=== PATIENT | female | born 1950 | race Caucasian/White ===

== ENCOUNTER 2017-09-27 11:11 | Emergency (ER) | payer MEDICARE, MEDICAID ==
[~2017-09-27] VITALS: Ht 172.7 cm; Wt 95.3 kg
[~2017-09-27 11:11] MED LIST: ANASTROZOLE1 MG PO; GABAPENTIN300 MG ORAL; LEVOTHYROXINE125 MCG ORAL; LITHIUM CARBON300 MG ORAL; PAROXETINE HCL20 MG PO; TRAZODONE HCL150 MG ORAL; WELLBUTRIN XL150 MG ORAL
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
[2017-09-27 14:13] VITALS: BP 141/78
--- NOTE | 2017-09-27 16:39 | Diagnostic Imaging Report ---
Indication: Pain Technique: 3 views of the right third toe Comparison: none Findings: There is severe degenerative narrowing of the first metatarsophalangeal joint. There are surrounding erosive changes. No acute fractures. No dislocations. 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
--- NOTE | 2017-09-27 16:42 | Diagnostic Imaging Report ---
Indication: Knee pain Technique: 2 views of the right knee Comparison: None Findings: No suprapatellar effusion. No acute fractures. No dislocations. Joint spaces are preserved Impression: No acute process
== END 2017-09-27 14:45 | disposition home or self-care (01) ==
LOC: EMR 14:34
DX: S92.501A Displaced unspecified fracture of right lesser toe(s), initial encounter for closed fracture (principal); S80.01XA Contusion of right knee, initial encounter; W01.0XXA Fall on same level from slipping, tripping and stumbling without subsequent striking against object, initial encounter; Y93.9 Activity, unspecified; Y92.9 Unspecified place or not applicable; Z88.0 Allergy status to penicillin; Z85.3 Personal history of malignant neoplasm of breast; F32.9 Major depressive disorder, single episode, unspecified
CPT/HCPCS: 99283

== ENCOUNTER 2017-11-05 14:24 | Emergency (ER) | payer MEDICARE, MEDICAID ==
[~2017-11-05] VITALS: Ht 172.7 cm; Wt 95.3 kg
[~2017-11-05 14:24] MED LIST changes: +RESTORIL15 MG ORAL
[2017-11-05 14:33] VITALS: BP 139/66
[2017-11-05 15:26] VITALS: BP 139/66
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
[2017-11-30] MEDS ORDERED: ZYPREXA5 MG ORAL (15:18)
== END 2017-11-05 15:20 | disposition home or self-care (01) ==
LOC: EMR 15:17
DX: F91.9 Conduct disorder, unspecified (principal); Z88.0 Allergy status to penicillin
CPT/HCPCS: 99283

== ENCOUNTER 2017-11-08 09:10 | Emergency (ER) | payer MEDICARE, MEDICAID ==
[~2017-11-08] VITALS: Ht 172.7 cm; Wt 96.6 kg
[2017-11-08 09:28] VITALS: BP 120/73
[2017-11-08] MEDS ORDERED: BENADRYL ALLERG25 M1 PO (09:29)
--- NOTE | 2017-11-08 09:34 | Emergency Room Report ---
History of Present Illness General Chief Complaint: Skin Rash/Abscess Source: Patient Present Illness HPI 67-year-old female with history of "emotional problems" presents tearful due to the fact that she has itchy red bumps on her body, mainly in her arms and trunk , as well as one on the lateral edge of her right foot, that been going on for about a week, she reports that her primary doctor prescribed her oral ivermectin and permethrin cream, both of which she brings him to the ED to show me, and she has tried these without relief of her symptoms. She just woke up with a new red itchy lesion on her right lateral foot. She denies any medications other than these 2, and she reports he isn't given to her by her doctor to stop itchy bumps. Allergies: Coded Allergies: PENICILLINS (Verified Allergy, Mild, Rash, 03/23/17) Patient History Past Medical History: see triage record Last Menstrual Period: NA Reviewed Nursing Documentation: PMH: Agreed; PSxH: Agreed Nursing Documentation-PMH Hx Cancer: Yes Review of Systems All Other Systems: negative except mentioned in HPI Physical Exam Vital Signs Date Time Temp Pulse Resp B/P (MAP) Pulse Ox O2 Delivery O2 Flow Rate FiO2 11/08/17 09:15 98.9 75 16 120/73 95 Room Air 99.0 Sp02 EP Interpretation: reviewed, normal General Appearance: no apparent distress, alert, non-toxic Head: normocephalic Eyes: bilateral eye normal inspection, bilateral eye PERRL, bilateral eye EOMI ENT: normal ENT inspection, hearing grossly normal, normal pharynx, no angioedema, normal voice, moist mucus membranes Neck: normal inspection, full range of motion, supple, supple/symm/no masses Respiratory: chest non-tender, lungs clear, normal breath sounds, chest symmetrical, palpation of chest normal Cardiovascular #1: normal peripheral pulses, regular rate, rhythm Cardiovascular #2: 2+ radial (R), 2+ radial (L) Gastrointestinal: normal inspection, non tender, soft, no mass, no guarding, no rebound Rectal: deferred Genitourinary: normal inspection, no CVA tenderness Musculoskeletal: back normal, gait/station normal, normal range of motion, non- tender, no calf tenderness Neurologic: alert, responsive, manager practice III-XII nml as tested, motor strength/tone normal, sensory intact, speech normal Psychiatric: judgement/insight normal, memory normal, anxious Skin: normal color, warm/dry, normal turgor, rash - Review isolated half centimeter red pruritic slightly raised lesions, no central clearing, appears to be consistent with isolated bug bites and localized allergic reaction. Lymphatic: no adenopathy Medical Decision Making Diagnostic Impression: Primary Impression: Bug bite ER Course Patient with no intertriginous burrowing murphy, no oral lesions, normal cardiorespiratory examination, sparing the palms and soles, few isolated localized reactions consistent with very unremarkable allergic reaction to bug bites, will discharge home with Benadryl and recommend she finish her permethrin cream and oral ivermectin, however do not suspect scabies or systemic allergic reaction or hives. Last Vital Signs Date Time Temp Pulse Resp B/P (MAP) Pulse Ox O2 Delivery O2 Flow Rate FiO2 11/08/17 09:28 99.0 75 18 120/73 97 Room Air 99.0 Disposition: HOME, SELF-CARE Condition: Stable Scripts Diphenhydramine Hcl (BENADRYL ALLERGY) 25 Mg Tablet 25 MG PO TID for 5 Days, #15 TAB Prov: AYDEN MCCRAY M.D 11/08/17 Patient Instructions: Insect Bite, [id number] AYDEN MCCRAY M.D Nov 08, 2017 09:34
[2017-11-08 09:38] VITALS: BP 120/73
[2017-11-30] MEDS ORDERED: ZYPREXA5 MG ORAL (15:18)
== END 2017-11-08 09:39 | disposition home or self-care (01) ==
LOC: EMR 09:26
DX: S40.862A Insect bite (nonvenomous) of left upper arm, initial encounter (principal); S40.861A Insect bite (nonvenomous) of right upper arm, initial encounter; S90.861A Insect bite (nonvenomous), right foot, initial encounter; W57.XXXA Bitten or stung by nonvenomous insect and other nonvenomous arthropods, initial encounter; Y92.9 Unspecified place or not applicable; R21 Rash and other nonspecific skin eruption; Z88.0 Allergy status to penicillin
CPT/HCPCS: 99283

== ENCOUNTER 2017-11-17 09:38 | Emergency (ER) | payer MEDICARE, MEDICAID ==
[~2017-11-17] VITALS: Ht 172.7 cm; Wt 96.6 kg
[~2017-11-17 09:38] MED LIST changes: +BENADRYL ALLERG25 M1 PO
[2017-11-17 09:50] VITALS: BP 123/76
[2017-11-17] MEDS ORDERED: Bacitracin Oint UD TOPIC ONE (10:15)
--- NOTE | 2017-11-17 10:25 | Emergency Room Report ---
History of Present Illness General Chief Complaint: Multiple Trauma/Fall Source: Patient Present Illness HPI This patient states that there was a floor mat that was displaced. She states she tripped over and fell onto her left knee. She states she also hit her face on a chair that wasn't supposed to be there. She denies chest pain or short of breath. She denies abdominal pain. She denies loss of consciousness. She denies neck pain. She has no other complaints. Allergies: Coded Allergies: PENICILLINS (Verified Allergy, Mild, Rash, 03/23/17) Patient History Past Medical History: see triage record Social History: Denies: smoking, alcohol use, drug use Last Menstrual Period: NA Reviewed Nursing Documentation: PMH: Agreed; PSxH: Agreed Nursing Documentation-PMH Hx Cancer: Yes Review of Systems All Other Systems: negative except mentioned in HPI Physical Exam Vital Signs Date Time Temp Pulse Resp B/P (MAP) Pulse Ox O2 Delivery O2 Flow Rate FiO2 11/17/17 09:45 97.7 74 20 123/76 98 Room Air 97.7 Sp02 EP Interpretation: reviewed, normal General Appearance: no apparent distress, alert, GCS 15, non-toxic Head: normocephalic, atraumatic Eyes: bilateral eye normal inspection, bilateral eye PERRL ENT: hearing grossly normal, normal pharynx, no angioedema, normal voice Neck: full range of motion, supple/symm/no masses Respiratory: chest non-tender, lungs clear, normal breath sounds, no respiratory distress, no retraction, no accessory muscle use, speaking full sentences Cardiovascular #1: regular rate, rhythm, no edema Gastrointestinal: normal bowel sounds, non tender, soft, non-distended, no guarding, no rebound Genitourinary: normal inspection, no CVA tenderness Musculoskeletal: back normal, gait/station normal, normal range of motion, non- tender Neurologic: alert, oriented x3, responsive, motor strength/tone normal, sensory intact, speech normal Psychiatric: judgement/insight normal, memory normal, mood/affect normal, no suicidal/homicidal ideation Skin: warm/dry, well hydrated, abrasions - Anterior knee and cervantes with superficial abrasions. No bony tenderness. Lymphatic: no adenopathy Medical Decision Making Diagnostic Impression: Primary Impression: Fall Additional Impressions: Abrasion of knee Contusion of knee, left ER Course This patient has abrasions of her left knee. Otherwise, her overall exam is unremarkable. Based on physical exam, I do not have any suspicion of fracture and therefore did not obtain any imaging. Overall, the patient evaluation is benign. The patient's wound was cleaned, irrigated, bacitracin was applied and dressed. The patient is given wound care instructions. At this time, I did not identify an emergency medical condition. The patient's given close return precautions and follow-up instructions. Last Vital Signs Date Time Temp Pulse Resp B/P (MAP) Pulse Ox O2 Delivery O2 Flow Rate FiO2 11/17/17 09:50 97.7 20 123/76 98 Room Air 97.7 11/17/17 09:45 74 Status: improved Disposition: HOME, SELF-CARE Condition: Improved Cassidy Cruz DO Nov 17, 2017 10:25
--- NOTE | 2017-11-23 15:24 | IOP Daily Group Progress Note ---
IOP Daily Group Progress Note Treatment Plan/Target Problem: Date: Nov 23, 2017 Group Reflections - : group 3 (11:30am-12:15pm) Therapy Goal(s) of Group: positive thoughts to improve mood, reminiscing to improve mood, socialization skills, stress reduction Observations: active listening skills, focused, participated spontaneously, participating actively, self disclosing, responded to limits Staff Intervention: reframed, taught assertiveness skills, validated feelings, validated progress Staff Intervention: Today the topic for this Symptom Management group was: . Therapist used an excerpt and handout from Skills Training Manual for Treating B.P.D with Cognitive Therapy . Therapist asked each group member to identify what makes them angry and to share with the group what were the strategies used to cope with their anger .Therapist educated on the importance of learning how to recognize anger triggers and identify healthy ways to cope with anger. Therapist followed this up with a group discussion, encouraging patients to use this information in moving forward. . Patients were participative and engaged during group activity. Response/Progress Noted: Pt. was very cooperative in completing the verbal directive, she promoted further group discussion . When asked by this therapist to share the exercise results, pt. reported, " It made me angry when people lie to me, I get inflammed" Pt received and processed feedback from the group in connection with her intense feelings and her openness to discuss them. Pt. was encouraged to apply these learning as often as needed when experiencing anger. It is anticipated that pt. benefitted from learning how to recognized and cope with anger and from listening to his peers comment on what helps them in their emotional regulation process. SISSY RUSS Nov 23, 2017 15:24
== END 2017-11-17 10:50 | disposition home or self-care (01) ==
LOC: EMR 10:43
DX: S80.212A Abrasion, left knee, initial encounter (principal); W01.0XXA Fall on same level from slipping, tripping and stumbling without subsequent striking against object, initial encounter; Y92.9 Unspecified place or not applicable; Z88.0 Allergy status to penicillin
CPT/HCPCS: 99283

== ENCOUNTER 2017-12-04 20:07 | Emergency (ER) | payer MEDICARE, MEDICAID ==
[~2017-12-04] VITALS: Ht 172.7 cm; Wt 96.6 kg
[~2017-12-04 20:07] MED LIST changes: +ZYPREXA5 MG ORAL
[2017-12-04 20:40] VITALS: BP 110/59
[2017-12-04] MEDS ORDERED: Albuterol/Ipratropium 3ml neb HHN ONE (20:45)
[2017-12-04] MEDS ORDERED: ALBUTEROL SULF8.5 GM INH (21:37)
[2017-12-04 21:40] VITALS: BP 114/59
--- NOTE | 2017-12-04 21:57 | Emergency Room Report ---
History of Present Illness General Chief Complaint: General Complaint Present Illness HPI Patient is a 67-year-old female who presented after increased difficulty breathing. Patient gradual onset of symptoms. Patient reported having accidentally inhaled some cleaning solution and approximately 2 days ago. She reports having prior history of breast cancer as well as mastectomy to the right side. Allergies: Coded Allergies: PENICILLINS (Verified Allergy, Mild, Rash, 03/23/17) Patient History Past Medical History: see triage record Reviewed Nursing Documentation: PMH: Agreed; PSxH: Agreed Nursing Documentation-PMH Hx Cancer: Yes Review of Systems All Other Systems: negative except mentioned in HPI Physical Exam Vital Signs Date Time Temp Pulse Resp B/P (MAP) Pulse Ox O2 Delivery O2 Flow Rate FiO2 12/04/17 20:23 98.2 71 18 105/52 93 Room Air 98.2 12/04/17 21:00 21 General Appearance: well appearing, no apparent distress, alert, GCS 15, non- toxic Head: normocephalic, atraumatic ENT: hearing grossly normal, normal voice Neck: full range of motion, supple Respiratory: no respiratory distress, speaking full sentences, wheezing - faint wheezing Cardiovascular #1: normal inspection Gastrointestinal: normal inspection, non tender, soft, no mass Musculoskeletal: no calf tenderness Neurologic: normal gait Psychiatric: mood/affect normal Skin: no rash Medical Decision Making Diagnostic Impression: Primary Impression: Pneumonitis ER Course Patient presented for shortness of breath. Differential included but was not limited to anemia, pneumonia, pneumothorax, myocardial infarction, pericardial effusion, congestive heart failure, acidosis. Because of complexity of patient' s case imaging studies were ordered.Chest x-ray one view interpreted by me showed normal cardiac size without definite infiltrate. Patient was given breathing treatment with some improvement in her symptoms. Given prescription for a inhaler. Patient is advised to follow-up with Dr. Cotto. The patient was to return if she began having any worsening shortness of breath high fever or other concerns. Last Vital Signs Date Time Temp Pulse Resp B/P (MAP) Pulse Ox O2 Delivery O2 Flow Rate FiO2 12/04/17 21:40 98.2 62 20 114/59 100 Room Air 98.2 12/04/17 21:06 21 Status: improved Disposition: HOME, SELF-CARE Condition: Stable Scripts Albuterol Sulfate* (ALBUTEROL SULFATE MDI*) 8.5 Gm Hfa.aer.ad 2 PUFF INH Q4H, #1 INH 0 Refills Prov: King Link MD 12/04/17 Patient Instructions: Pneumonitis King Link MD Dec 04, 2017 21:57
--- NOTE | 2017-12-05 09:37 | Diagnostic Imaging Report ---
Indication: Reason For Exam: SOB Technique: One view of the chest Comparison: none Findings: There is a right breast implants. There is atelectasis at the left lateral lung base. Lungs and pleural spaces are otherwise clear. The heart size is normal Impression: Left basilar atelectasis. No acute process otherwise
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
== END 2017-12-04 22:18 | disposition home or self-care (01) ==
LOC: EMR 20:43
DX: J18.9 Pneumonia, unspecified organism (principal); E03.9 Hypothyroidism, unspecified; Z87.891 Personal history of nicotine dependence; Z85.3 Personal history of malignant neoplasm of breast; Z90.11 Acquired absence of right breast and nipple; Z88.0 Allergy status to penicillin
CPT/HCPCS: 71045; 94640; 94664; 99284; J7620

== ENCOUNTER 2017-12-07 18:14 | Emergency (ER) | payer MEDICARE, MEDICAID ==
[~2017-12-07] VITALS: Ht 172.7 cm; Wt 90.7 kg
[~2017-12-07 18:14] MED LIST changes: +ALBUTEROL SULF8.5 GM INH
[2017-12-07 18:51] VITALS: BP 139/76
--- NOTE | 2017-12-07 18:54 | Emergency Room Report ---
History of Present Illness General Chief Complaint: Earache Source: Patient (Lisandro Chanel) Present Illness HPI 67-year-old female patient presents ER complaining of bilateral earache for the past few days. Reports was seen in ER several days ago getting a breathing treatment, states dthe day afterwards began to experience earache pain. States was unable to be seen by PCP and was sent to ER. Reports decreased hearing during this time. Patient also requesting breathing treatment be performed. States has been coughing since previous visit. Patient reports cough with green sputum. Denies hemoptysis. Reports sore throat during this time as well. Reports history of tinnitus. Denies fever, chest pain, shortness of breath. Denies head trauma or vision changes. (Lisandro Chanel) Allergies: Coded Allergies: PENICILLINS (Verified Allergy, Mild, Rash, 03/23/17) Patient History Past Medical History: see triage record Reviewed Nursing Documentation: PMH: Agreed; PSxH: Agreed (Lisandro Chanel) Nursing Documentation-PMH Past Medical History: No History, Except For Hx Cardiac Problems: No - hypothyroidism Hx Hypertension: No - Fall Hx Pacemaker: No Hx Asthma: No Hx COPD: No Hx Diabetes: No Hx Cancer: Yes - right breast cancer; right mastectomy Hx Gastrointestinal Problems: No Hx Dialysis: No Hx Neurological Problems: No Hx Cerebrovascular Accident: No Hx Seizures: No (Lisandro Chanel) Review of Systems All Other Systems: negative except mentioned in HPI (Lisandro Chanel) Physical Exam Vital Signs Date Time Temp Pulse Resp B/P (MAP) Pulse Ox O2 Delivery O2 Flow Rate FiO2 12/07/17 18:29 99.2 79 14 139/76 94 Room Air 99.1 Sp02 EP Interpretation: reviewed, normal General Appearance: well appearing, no apparent distress, alert, GCS 15, non- toxic Head: normocephalic, atraumatic Eyes: bilateral eye normal inspection, bilateral eye PERRL ENT: hearing grossly normal, normal pharynx, no angioedema, normal voice, TMs + canals normal - excessive cerumen bilaterally, uvula midline, moist mucus membranes Neck: full range of motion Respiratory: lungs clear, normal breath sounds, no rhonchi, no respiratory distress, no accessory muscle use, no wheezing, speaking full sentences Cardiovascular #1: regular rate, rhythm, no edema Musculoskeletal: back normal, digits/nails normal, gait/station normal, normal range of motion, non-tender, no calf tenderness, Hola's Sign negative Neurologic: alert, oriented x3, responsive, motor strength/tone normal, sensory intact Psychiatric: mood/affect normal Skin: no rash Lymphatic: no adenopathy (Lisandro Chanel) Medical Decision Making [place] Attestation Dr. Liu is my supervising Physician whom patient management has been discussed with. (Lisandro Chanel) Medicare Attestation The history of Nata Hudson has been reviewed and management options for her have been examined and discussed by Mckay Liu. I have personally examined and interviewed the patient. (Mckay Liu MD) Diagnostic Impression: Primary Impression: Excessive cerumen in both ear canals ER Course Pt presents to ED c/o ear pain. DDX considered but are not limited to rhinitis, sinusitis, otitis media, otitis externa, cerumen impaction. Low suspicion for PE per Well's criteria, Homans sign negative. VITAL SIGNS are WNL, patient is afebrile. ED INTERVENTIONS: Lungs clear to auscultation, no wheezes, rhonci or rales. Patient afebrile, does not require CXR, low suspicion for pneumonia.. Will provide breathing treatment. Patient reports feeling better following breathing treatment, lungs clear to auscultation. PE shows excessive cerumen in ears bilaterally. No mastoid swelling or erythema , no rash or vesicles on face. Able to visualize TMs bilaterally, no erythema or edema, no effusion. Will provide treatment of ear fullness and cerumen, does not require ear lavage at this time. Patient instructed not to use Q-tips. Follow-up with primary care provider for further treatment and referral. Discuss referral to ENT. Patient resting comfortably in no acute distress, nontoxic appearing, texting on phone and reading a book. Patient OK for discharge to home. DISCHARGE: Rx provided for Debrox Rx provided for Claritin At this time pt is stable for d/c to home. patient resting comfortably, no acute distress, nontoxic appearing, talking without difficulty, smiling. Patient to take medications as instructed Will provide with patient care instructions and any necessary prescriptions. Care plan and follow-up instructions provided. Patient instructed to follow-up with primary care in 3 - 5 days. Patient questions asked and answered. patient reports understanding and agreement treatment plan. ER precautions given. Patient instructed to return to ER immediately for any new or worsening of symptoms including but not limited to increasing SOB, persistent fever. - Please note that this Emergency Department Report was dictated using Rapportsquare shear operator technology software, occasionally this can lead to erroneous entry secondary to interpretation by the dictation equipment. (Lisandro Chanel) Last Vital Signs Date Time Temp Pulse Resp B/P (MAP) Pulse Ox O2 Delivery O2 Flow Rate FiO2 12/07/17 18:29 99.2 79 14 139/76 94 Room Air 99.1 (Lisandro Chanel) Disposition: HOME, SELF-CARE Condition: Stable Scripts Loratadine (CLARITIN) 10 Mg Tablet 10 MG ORAL DAILY, #30 TAB Prov: Lisandro Chanel 12/07/17 Carbamide Peroxide (DEBROX) 15 Ml Drops 10 DROP BOTH EARS TWICE A DAY for 4 Days, ML 0 Refills Prov: Lisandro Chanel 12/07/17 Patient Instructions: Cerumen Impaction Additional Instructions: Followup with primary care provider in 3 -5 days. Request referral to ENT. Take medications as directed. Continue taking medications as previously instructed at previous visit Patient questions asked and answered. ER precautions given, patient instructed to return to ER immediately for any new or worsening of symptoms. Lisandro Chanel Dec 07, 2017 18:54 Mckay Liu MD Dec 11, 2017 13:53
[2017-12-07] MEDS ORDERED: Albuterol/Ipratropium 3ml neb HHN ONE (19:00)
[2017-12-07] MEDS ORDERED: DEBROX15 M1 BOTH EARS (20:17)
[2017-12-07] MEDS ORDERED: CLARITIN10 MG ORAL (20:17)
[2017-12-07 20:31] VITALS: BP 135/74
== END 2017-12-07 20:31 | disposition home or self-care (01) ==
LOC: EMR 18:30
DX: H61.23 Impacted cerumen, bilateral (principal); E03.9 Hypothyroidism, unspecified; Z85.3 Personal history of malignant neoplasm of breast; Z90.11 Acquired absence of right breast and nipple; Z88.0 Allergy status to penicillin
CPT/HCPCS: 94640; 99284; J7620

== ENCOUNTER 2017-12-29 20:24 | Emergency (ER) | payer MEDICARE, MEDICAID ==
[~2017-12-29] VITALS: Ht 172.7 cm; Wt 99.8 kg
[~2017-12-29 20:24] MED LIST changes: +CLARITIN10 MG ORAL; +DEBROX15 M1 BOTH EARS
[2017-12-29] MEDS ORDERED: IBUPROFEN600 MG ORAL (20:59)
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
[2017-12-29 21:05] VITALS: BP 108/67
== END 2017-12-29 21:15 | disposition home or self-care (01) ==
LOC: EMR 21:11
DX: M76.62 Achilles tendinitis, left leg (principal); E03.9 Hypothyroidism, unspecified; F32.9 Major depressive disorder, single episode, unspecified; Z85.3 Personal history of malignant neoplasm of breast; Z88.0 Allergy status to penicillin
CPT/HCPCS: 29515; 99282

== ENCOUNTER 2018-02-15 12:49 | Emergency (ER) | payer MEDICARE, MEDICAID ==
[~2018-02-15] VITALS: Ht 172.7 cm; Wt 104.3 kg
[~2018-02-15 12:49] MED LIST changes: +IBUPROFEN600 MG ORAL
--- NOTE | 2018-02-15 13:34 | Emergency Room Report ---
History of Present Illness General Chief Complaint: Lower Extremity Injury Source: Patient Present Illness HPI 67-year-old female patient presents ER complaining of bilateral knee pain. Patient states that she tripped and fell twice about 2 weeks ago onto her knees , states she heard a "pop". Patient denies dizziness or syncopal episode, denies hitting her head or loss of consciousness. States that falls occurred after this he moved to her new place with her finishing floors. Patient states that they are "recent cementing" and redoing the floors at her new place and she has been tripping there. Reports has not fallen in 2 weeks. Reports able ambulate. Reports small abrasions on her knees, denies active bleeding. reports was taking Tylenol for pain but stopped several days ago. Denies fever , chest pain or shortness of breath. reports able ambulate without difficulty. Denies bowel or bladder incontinence Allergies: Coded Allergies: PENICILLINS (Verified Allergy, Mild, Rash, 03/23/17) Patient History Past Medical History: see triage record Now: No Reviewed Nursing Documentation: PMH: Agreed; PSxH: Agreed Nursing Documentation-PMH Past Medical History: No History, Except For Hx Cardiac Problems: No - hypothyroidism Hx Hypertension: No - Fall Hx Pacemaker: No Hx Asthma: No Hx COPD: No Hx Diabetes: No Hx Cancer: Yes - right breast cancer; right mastectomy Hx Gastrointestinal Problems: No Hx Dialysis: No Hx Neurological Problems: No Hx Cerebrovascular Accident: No Hx Seizures: No Review of Systems All Other Systems: negative except mentioned in HPI Physical Exam Vital Signs Date Time Temp Pulse Resp B/P (MAP) Pulse Ox O2 Delivery O2 Flow Rate FiO2 02/15/18 13:03 98.2 60 21 131/73 95 Room Air Sp02 EP Interpretation: reviewed, normal General Appearance: well appearing, no apparent distress, alert, GCS 15, non- toxic Head: normocephalic, atraumatic Eyes: bilateral eye normal inspection, bilateral eye PERRL ENT: hearing grossly normal, normal pharynx, no angioedema, normal voice, uvula midline, moist mucus membranes Neck: full range of motion Respiratory: lungs clear, normal breath sounds, no rhonchi, no respiratory distress, no accessory muscle use, no wheezing, speaking full sentences Cardiovascular #1: regular rate, rhythm, no edema Cardiovascular #2: 2+ dorsalis pedis (R), 2+ dorsalis pedis (L) Musculoskeletal: back normal, digits/nails normal, gait/station normal, normal range of motion, non-tender, other - NVI, no bony deformity, no erythema or edema, no ecchymosis, no laxity with varus or valgus stress, negative anterior and posterior shortness, Adams test shows no achilles rupture Neurologic: alert, oriented x3, responsive, motor strength/tone normal, sensory intact Psychiatric: mood/affect normal Skin: abrasions - multiple less than 1 cm abrasions noted around the left knee , knee, and no surrounding erythema or edema, no active drainage or bleeding, scabbed over Medical Decision Making [place] Attestation Dr. Link is my supervising Physician whom patient management has been discussed with. Diagnostic Impression: Primary Impression: Contusion of knee, right Additional Impression: Contusion of knee, left ER Course Pt. presents to the ED c/o bilateral knee pain. Ddx considered but are not limited to fracture, sprain, strain, contusion, dislocation. No erythema, no warmth to touch, no fever, nontoxic appearing, low suspicion for septic joint. Soft compartments, no pulselessness, no pallor, no paresthesias, low suspicion for compartment syndrome at this time. no head trauma, no loss consciousness, no dizziness or syncope, does not require CT of head or further workup at this time. Vital signs: are WNL, pt. is afebrile Ordered X-ray and pain medication. ER COURSE Provided with pain medication. An X-ray of the left knee shows no acute fracture per the preliminary reading. An X-ray of the right knee shows no acute fracture per the preliminary reading. likely contusions bilaterally causing pain symptoms. Patient declines Bryant wrap and crutches. Patient instructed on RICE method: rest, ice, compression, elevation. Patient instructed on rest, ice and heat. Patient instructed to be WBAT Contact information for orthopedic urgent care provided, follow-up with urgent care if unable to followup with primary care provider and get referral to intranet specialist. Followup with primary care provider. Discuss referral to ortho/pain management/ PT as needed. Discuss further imaging with MRI/CT as needed. follow up with manager division, contact information provided. Keep abrasions clean and dry, apply Neosporin to help reduce appearance of scars. DISCHARGE: -Rx provided for Tylenol for pain symptoms. -Rx provided for bacitracin At this time pt. is stable for d/c to home. Patient is resting comfortably, in no acute distress, nontoxic appearing, talking without difficulty. Will provide printed patient care instructions, and any necessary prescriptions. Patient instructed to follow with primary care provider in 3 - 5 days and to request further follow-up as needed. Care plan and follow up instructions have been discussed with the patient prior to discharge. Take medications as directed. Patient questions asked and answered. Patient reports understanding and agreement to treatment plan. ER precautions given, patient instructed to return to ER immediately for any new or worsening of symptoms. - Please note that this Emergency Department Report was dictated using [employer]oxiesupervisor electrolytic tinning technology software, occasionally this can lead to erroneous entry secondary to interpretation by the dictation equipment. Other X-Ray Diagnostic Results Other X-Ray Diagnostic Results #1: X-Ray ordered: right knee # of Views/Limited Vs Complete: 3 View Indication: Pain PA Xray: Interpretation reviewed, by supervising MD, and agrees with findings. Interpretation: no dislocation, no soft tissue swelling, no fractures Impression: No acute disease PA Scribe Text Ventura Chanel PA-C Other X-Ray Diagnostic Results #2: X-Ray ordered: left knee # of Views/Limited Vs Complete: 3 View Indication: Pain EP Interpretation: Yes PA Xray: Interpretation reviewed, by supervising MD, and agrees with findings. Interpretation: no dislocation, no soft tissue swelling, no fractures Impression: No acute disease PA Scribe Text Ventura Chanel PA-C Last Vital Signs Date Time Temp Pulse Resp B/P (MAP) Pulse Ox O2 Delivery O2 Flow Rate FiO2 02/15/18 13:03 98.2 60 21 131/73 95 Room Air Status: improved Disposition: HOME, SELF-CARE Condition: Stable Scripts Bacitracin/Polymyxin B Sulfate (BACITRACIN-POLYMYXIN OINTMENT) 28.35 Gm Oint...g. 1 APPLIC TP BID, #28 GM Prov: Lisandro Chanel 02/15/18 Acetaminophen* (TYLENOL EXTRA STRENGTH*) 500 Mg Tablet 500 MG ORAL Q8H PRN for Prn Headache/Temp > 101, #30 TAB 0 Refills Prov: Lisandro Chanel 02/15/18 Referrals: NOT CHOSEN IPA/,REFERRING (PCP) Patient Instructions: Abrasion, [id number], Fall Prevention in the Home, Easy -to-Read, Knee Pain, [id number] Additional Instructions: Patient instructed to follow up with primary care provider and discuss further referral to orthopedics/physical therapy/pain management as needed. If unable to followup with PCP, followup with orthopedic urgent care in 5-7 days , call to schedule appointment. Patient instructed on RICE method: rest, ice, compression, elevation. Patient instructed to WBAT. Take medications as directed. Patient questions asked and answered. ER precautions given, patient instructed to return to ER immediately for any new or worsening of symptoms. [facility] [address] [address] [facility], [address] [email or web address] Lisandro Chanel Feb 15, 2018 13:34
[2018-02-15] MEDS ORDERED: TYLENOL EXTRA500 MG ORAL (14:14)
[2018-02-15] MEDS ORDERED: BACITRACIN-P28.35 GM TP (14:15)
[2018-02-15 14:28] VITALS: BP 130/69
--- NOTE | 2018-02-15 14:36 | Diagnostic Imaging Report ---
. Indications: Knee pain Technique: Three views of the right knee Comparison: None Findings: No acute fractures. No dislocations. Joint spaces are preserved. No radiopaque foreign body. Normal mineralization. Impression: No acute process
--- NOTE | 2018-02-15 14:37 | Diagnostic Imaging Report ---
Indication: Left knee pain Technique: 3 views of the left knee Comparison: None Findings: No suprapatellar effusion. No acute fractures. No dislocations. There is a small superior pole patellar traction osteophyte. The joint spaces are preserved. Impression: Negative
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
== END 2018-02-15 14:28 | disposition home or self-care (01) ==
LOC: EMR 13:24
DX: S80.02XA Contusion of left knee, initial encounter (principal); S80.01XA Contusion of right knee, initial encounter; S80.212A Abrasion, left knee, initial encounter; W01.0XXA Fall on same level from slipping, tripping and stumbling without subsequent striking against object, initial encounter; Y92.89 Other specified places as the place of occurrence of the external cause; Z88.0 Allergy status to penicillin; Z85.3 Personal history of malignant neoplasm of breast; Z90.11 Acquired absence of right breast and nipple
CPT/HCPCS: 99284

== ENCOUNTER 2018-04-13 16:07 | Emergency (ER) | payer MEDICAID, MEDICARE ==
[~2018-04-13] VITALS: Ht 172.7 cm; Wt 104.3 kg
[~2018-04-13 16:07] MED LIST changes: +BACITRACIN-P28.35 GM TP; +TYLENOL EXTRA500 MG ORAL
[2018-04-13 16:15] VITALS: BP 109/61
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
[2018-04-13 17:30] VITALS: BP 112/65
== END 2018-04-13 17:30 | disposition home or self-care (01) ==
LOC: EMR 16:59
DX: T14.8XXA Other injury of unspecified body region, initial encounter (principal); X58.XXXA Exposure to other specified factors, initial encounter; Y92.9 Unspecified place or not applicable; E03.9 Hypothyroidism, unspecified; Z85.3 Personal history of malignant neoplasm of breast; Z90.11 Acquired absence of right breast and nipple; Z88.0 Allergy status to penicillin
CPT/HCPCS: 99282

== ENCOUNTER 2018-05-19 10:31 | Emergency (ER) | payer MEDICARE, MEDICAID ==
[~2018-05-19] VITALS: Ht 172.7 cm; Wt 104.3 kg
--- NOTE | 2018-05-19 10:54 | Emergency Room Report ---
History of Present Illness General Chief Complaint: Upper Respiratory Illness Source: Family Member Present Illness HPI Patient presents with reports of cough and respiratory irritation Reports that several months ago after using a bug spray She has flareup of her breathing had required breathing treatments at that time And off-and-on she has had flareups Patient however also reports that she does smoke and uses marijuana as well Denies any chest pain denies any vomiting denies any fevers or chills Patient feels that a breathing treatment will help her sensation Denies any recent travel denies any pleurisy Allergies: Coded Allergies: PENICILLINS (Verified Allergy, Mild, Rash, 03/23/17) Patient History Past Medical History: see triage record Pertinent Family History: none Reviewed Nursing Documentation: PMH: Agreed; PSxH: Agreed Nursing Documentation-PMH Past Medical History: No History, Except For Hx Cardiac Problems: No - hypothyroidism Hx Hypertension: No - Fall Hx Pacemaker: No Hx Asthma: No Hx COPD: No Hx Diabetes: No Hx Cancer: Yes - right breast cancer; right mastectomy Hx Gastrointestinal Problems: No Hx Dialysis: No Hx Neurological Problems: No Hx Cerebrovascular Accident: No Hx Seizures: No Review of Systems All Other Systems: negative except mentioned in HPI Physical Exam Vital Signs Date Time Temp Pulse Resp B/P (MAP) Pulse Ox O2 Delivery O2 Flow Rate FiO2 05/19/18 10:36 98.8 82 19 158/76 95 Room Air Sp02 EP Interpretation: reviewed, normal General Appearance: well appearing, no apparent distress Head: normocephalic, atraumatic Eyes: bilateral eye PERRL, bilateral eye EOMI ENT: hearing grossly normal, normal pharynx, TMs + canals normal, uvula midline Neck: full range of motion, supple, no meningismus, no bony tend Respiratory: no rhonchi, no respiratory distress, no retraction, no accessory muscle use, wheezing - Fine wheezing bilaterally Cardiovascular #1: normal peripheral pulses, regular rate, rhythm, no edema, no gallop, no JVD, no murmur Gastrointestinal: normal bowel sounds, non tender, soft, no mass, no organomegaly, non-distended, no guarding, no hernia, no pulsatile mass, no rebound Genitourinary: no CVA tenderness Musculoskeletal: normal inspection Neurologic: oriented x3, responsive, flat surfacer III-XII nml as tested, motor strength/ tone normal, sensory intact Psychiatric: mood/affect normal Skin: normal color, no rash, warm/dry, palpation normal Lymphatic: normal inspection, no adenopathy Medical Decision Making Diagnostic Impression: Primary Impression: Cough Additional Impression: Reactive airway disease ER Course Patient presents with complaints of cough and respiratory discomfort I suspect that there is some underlying asthma/COPD Given the patient's history However she also feels that there is some irritation from the bug spray that was used previously patient treated symptomatically has done significantly better And will have initial conservative outpatient trial Last Vital Signs Date Time Temp Pulse Resp B/P (MAP) Pulse Ox O2 Delivery O2 Flow Rate FiO2 05/19/18 10:36 98.8 82 19 158/76 95 Room Air Status: improved Disposition: HOME, SELF-CARE Condition: Improved Scripts Prednisone* (PREDNISONE*) 20 Mg Tablet 20 MG ORAL DAILY, #5 TAB 0 Refills Prov: Jv Obrien DO 05/19/18 Albuterol Sulfate* (ALBUTEROL SULFATE MDI*) 8.5 Gm Hfa.aer.ad 2 PUFF INH Q6H, #1 EA 0 Refills Prov: Jv Obrien DO 05/19/18 Additional Instructions: Patient is provided with the discharge instructions notified to follow up with primary doctor in the next 2-3 days otherwise return to the er with any worsening symptoms. Please note that this report is being documented using [employer] technology. This can lead to erroneous entry secondary to incorrect interpretation by the dictating instrument. Jv Obrien DO May 19, 2018 10:54
[2018-05-19] MEDS ORDERED: Ipratropium 0.02% Inh Soln 2.5ml UD HHN ONE (11:00)
[2018-05-19] MEDS ORDERED: Albuterol ud Inhalation HHN ONE (11:00)
--- NOTE | 2018-05-19 11:07 | NUR ---
ED Nurse Note:pt. came with SOB and asthma exacerbation, seen by ER MD, pt. is A/Ox4 ambulatory, given po med and breathing treatment
[2018-05-19 11:48] VITALS: BP 152/74
[2018-05-19] MEDS ORDERED: PREDNISONE20 MG ORAL (12:17)
[2018-05-19] MEDS ORDERED: ALBUTEROL SULF8.5 GM INH (12:17)
[2018-05-19 12:26] VITALS: BP 150/72
--- NOTE | 2018-05-19 12:27 | NUR ---
ED Nurse Note: Patient cleared for discharge per ERMD. NAD. VSS. Patient given prescriptions and discharge instructions; verbalized understanding. ID band removed. Patient ambulated steady with all personal belongings.
[2018-05-19 12:28] VITALS: BP 150/72
[2018-05-19] MEDS ORDERED: Mylanta II UD 30ml ORAL ONE (12:30)
== END 2018-05-19 12:29 | disposition home or self-care (01) ==
LOC: EMR 11:06
DX: R05 Cough (principal); J45.909 Unspecified asthma, uncomplicated; Z85.3 Personal history of malignant neoplasm of breast; E03.9 Hypothyroidism, unspecified; Z90.11 Acquired absence of right breast and nipple; Z88.0 Allergy status to penicillin
CPT/HCPCS: 94640; 94664; 99283; J7512